=== PATIENT | male | born 1955 ===

== ENCOUNTER 2024-08-28 06:20 | Day surgery (SDC) | payer OTHER, SELFPAY | END 2024-08-28 12:41 | disposition home or self-care (01) | LOC: GI 06:20 | PROVIDERS: ATTENDING PHYSICIAN Internal Medicine Gastroenterology | DX: R19.4 Change in bowel habit (principal); K63.5 Polyp of colon; K57.30 Diverticulosis of large intestine without perforation or abscess without bleeding; K64.8 Other hemorrhoids | CPT/HCPCS: 45380; 88305 ==